=== PATIENT | male | born 2005 ===

== ENCOUNTER → 2024-10-20 13:37 | Outpatient (REF) | payer BC, SELFPAY | LOC: RCS 13:37 | PROVIDERS: ATTENDING PHYSICIAN Internal Medicine Cardiovascular Disease; FAMILY PHYSICIAN Nurse Practitioner Adult Health | DX: R42 Dizziness and giddiness (principal); R94.31 Abnormal electrocardiogram [ECG] [EKG]; G93.31 Postviral fatigue syndrome | CPT/HCPCS: 93306 ==